=== PATIENT | female | born 1960 | race Caucasian/White ===

== ENCOUNTER 2017-05-24 05:30 | Day surgery (SDC) | payer OTHER ==
--- NOTE | 2017-05-17 14:11 | PCM.ANEPRE ---
Anesthesia Pre-Op Review Anesthesia Recommendations: Delay until Additional Data Obtain Additional Comments 57 yo for hysteroscopy D&c secondary to thickened endometrium on U/S. Patient saw range rider due to leg edema and was noted to have abnormal EKG changes in the anterior distribution. Patient has poor exercise tolerance. Cardiology recommended a Lexiscan to rule out occult CAD. Given that this surgery is nonurgent and patient has concerning EKG changes would wait for results of cardiac study. Chart Reviewed by: Jose Bernabe MD May 17, 2017 14:11
--- NOTE | 2017-05-22 12:56 | PCM.ANEPRE ---
Anesthesia Pre-Op Review Reason for Review: Cardiac Work-up Anesthesia Recommendations: Proceed with Procedure Additional Comments 57 yo F scheduled for hysteroscopy and D&C for thickened endometrium. Delayed by Dr. Quiroz on 05/17/2017 for further anastasiya pdue to poor exercise tolerance, lower extremity edema, and EKG changes. Since this time she underwent stress test (05/22/17) which was read as "probably normal" with normal LV volume and systolic function. OK to proceed. Chart Reviewed by: MD Myah Mcbride Jeffrey L MD May 22, 2017 12:56
[~2017-05-24] VITALS: Ht 161.3 cm; Wt 63.0 kg
[2017-05-24] VITALS (11 sets, daily range): BP systolic 106–169; BP diastolic 65–85; PULSE 52–68; RESP 9–18; O2SAT 94–100
[~2017-05-24 05:30] MED LIST: ASCO-294 PO; ASPI-973 PO; CALC-243 PO; CHOL10008 PO; FUR20 PO; LEVO75TA36 PO; METO25TA6 PO; MULT-1018 PO; POTA10TA14 PO
[2017-05-24] MEDS ORDERED: Ondansetron 2 mg/mL 2 mL Inj ONE (05:31)
[2017-05-24] MEDS ORDERED: fentaNYL-PF 50 mCg/mL 2 mL Inj ONE (05:31)
[2017-05-24] MEDS ORDERED: Propofol 10,000 mCg/mL 20 mL Inj ONE (05:31)
[2017-05-24] MEDS ORDERED: Dexamethasone 4 mg/mL Inj ONE (05:31)
[2017-05-24] MEDS ORDERED: EPHEDrine/NS 5 mg/mL 5 mL Syringe ONE (05:31)
[2017-05-24] MEDS: Lactated Ringer's 1,000 ML IV SCH ×2 (05:39→07:30)
[2017-05-24] MEDS ORDERED: Lactated Ringer's 1,000 ML IV SCH (07:44)
[2017-05-24] MEDS ORDERED: Lactated Ringer's 500 ML IV PRN (07:44)
--- NOTE | 2017-05-24 07:44 | PCM.HPANE ---
Patient Data Date of Service: May 24, 2017 Surgeon Admitting Provider: Attending Provider:Kelly Lagos MD Primary Care Physician:Ariel Gamboa DO Other Provider:Charlie Espinoza Anesthesia Reason for Visit Endometrial Thickening On Ultrasound Ht/WT & BMI Height (Feet): 5 Height (Inches): 3.50 Weight (Kilograms): 63.050 Body Mass Index 24.00 Allergies Coded Allergies: lisinopril (Verified Allergy, Intermediate, gi upset and cough, 05/24/17) Past Anesthesia History Anesthesia History: Denies:: Abnormal Airway, Anesthesia Reactions, Difficult Intubation, Fam Anesthesia Reaction Diabetes History Hx Diabetes?: No MRSA MRSA: Yes (possibly in 2006 (boil)) Medications Blood Thinner: Aspirin Hypertension Medication: Yes Home Meds Incl Beta Tsesy: Yes Date Beta Tessy Taken: May 24, 2017 Time Beta Tessy Taken: 0330 Reported Medications Cholecalciferol (Vitamin D3) (Vitamin D3)1,000 Unit Tab.chew1,000 Unit PO DAILY 05/16/17 Ascorbate Calcium (Vitamin C)500 Mg Tablet1,000 Mg PO DAILY 05/16/17 Multivitamin (Multi Vitamin Daily)1 Each Tablet1 Each PO DAILY 30 Days Ref 0 05/16/17 Metoprolol Tartrate 25 Mg Xjcnqh19 Mg PO BID 30 Days Ref 0 05/16/17 Levothyroxine (Levoxyl)75 Mcg Wengoo60 Mcg PO DAILY Ref 0 05/16/17 Potassium Chloride ER (Klor-Con M10)10 Meq Djlfng50 Meq PO DAILY Ref 0 05/16/17 Furosemide 20 Mg Tab20 Mg PO DAILY 30 Days Ref 0 05/16/17 Calcium Carbonate/Vitamin D3 (Calcium 600 + Vit D Tablet)1 Each Tablet1 Each PO DAILY 05/16/17 Aspirin 81 Mg Fgkeqi45 Mg PO DAILY Ref 0 05/16/17 History History of ENT Problems?: No HEENT History: Denies:: Abnormal Airway Cataracts Difficult Intubation Dysphagia Glaucoma Hearing Problem Sinus Problem TMJ Denture Type: None Teeth Condition: Within Normal Limits Hx of Heart Problems?: Yes Cardiovascular History: Positive for:: Edema Hypertension Denies:: AICD Cardiac Surgery Heart Murmur Irregular Heartbeat Pacemaker Peripheral Vascular Hx of Respiratory Problem?: No Respiratory History: Denies:: Asthma COPD Emphysema Hemoptysis Oxygen Administration Pneumonia Pulmonary Embolism Tuberculosis Use of C-PAP Machine Use of Inhalers / NEBS Hx Neurologic Problems?: No Neurological History: Denies:: Alzheimer's Disease CVA Dementia Dizziness Headaches Multiple Sclerosis Parkinson's Disease Seizures TIA Hx of GI Problems?: No Hx of Problems?: Yes Genitourinary History: Positive for:: Kidney Stones (hx of kidney stone ) Denies:: HX of Hemodialysis Urinary Tract Infection HX of Peritoneal Dialysis: No Other Pertinent History: hx of bladder tumor- Female Hx: Denies:: Currently Endometriosis Pelvic Inflammatory Problems with Breasts? Skin History: Denies:: History Skin Disorders? Pressure Ulcers Hx Musculoskeletal Problems?: Yes Musculoskeletal History: Positive for:: Osteoarthritis Denies:: Back Injury (curvative of spine) Degenerative Joint Fibromyalgia Joint Replacement Musculoskeletal Trauma (knees- limits exercise and motion) Myasthenia Gravis Systemic Lupus Hx of Psycho/Social Problems?: No Hx Surgeries?: Yes (kidney stone, left breat lumpectomy; fibroid embolization) Hx Any Other Health Problems?: Yes Other History: Positive for:: Cancer (bladder tumor) Hospitalization (kidney stone; fibroid embolization; left breast lumpectomy) Thyroid Disease (on medication) Denies:: Endocrine Disease History Blood Transfusions: Positive for:: Accept Blood Products? Denies:: Blood Transfusions Hx Diabetes: No Hx Alcohol Use: YesAlcoholic Drinks Per Day: one drink dailyHx Substance Use: NoHave You Smoked inLast 12 mo: No Stop/Bang S-Snoring: Do You Snore Loudly: No T-Tired: feel tired, fatigued: No O-Obsered: Observed not breath: No P-Blood Pressure: treated: Yes B- Body Mass Index > 35 kg/m2: No A- Age over 50: Yes N- Neck Large Circumference: No G- Gender Male: Yes ARIEL Total Score: 3 Risk Assessment Category Category 1A: Patient has history of documented sleep apnea, and HAS NOT received any narcotic, sedative or anesthesia administration during this stay. Category 1B: Patient has history of documented sleep apnea, and HAS received any narcotic , sedative or anesthesia administration during this stay Category 2: Patient has SUSPECTED Obstructive Sleep Apnea, and HAS received any narcotic , sedative or anesthesia administration during this stay. Category 3: Patient has SUSPECTED Obstructive Sleep Apnea and HAS NOT received narcotic, sedative or anesthesia administration during this stay. Category 4: Outpatient in Procedural Areas with known sleep apnea or who screen positive for High Risk via the STOP/BANG questionnaire. Exam Exam Vital Signs Vital Signs Date Time Temp Pulse Resp B/P Pulse Ox O2 Delivery O2 Flow Rate FiO2 05/24/17 06:12 36.7 58 18 169/85 99 Room Air General Appearance: Alert, Oriented X3, Cooperative, No Acute Distress HEENT/AIRWAY: MP 1 Lungs: Clear to Auscultation, Normal Air Movement Heart: Exam Unremarkable, Regular Rate/Rhythm, No Murmurs/Rubs/Gallops Meds/Labs/Diagnostics Admission Meds Current Medications Lactated Ringer's (Lr) 1,000 ml @ 120 mls/hr Q8H20M IV Last administered on t 05:39; Start 05/24/17 at 05:00; Stop 05/24/17 at 13:19 Plan Impression Patient chart reviewed, patient interviewed and anesthestic plan with risks, benefits, and alternatives discussed, and informed consent obtained. NPO per Anesth. Guidelines: Yes ASA Physical Status: ASA2 Mod Systemic Disease Anesthetic Plan: GA Bene/Risks/Altern/Consents: Yes HP Complete Prior to Induction: Yes Guilherme Lam MD May 24, 2017 07:25
[2017-05-24] MEDS ORDERED: Dexamethasone 4 mg/mL Inj IVPUSH PRN (07:45)
[2017-05-24] MEDS ORDERED: Atropine 0.4 mg/mL Inj IVPUSH PRN (07:45)
[2017-05-24] MEDS ORDERED: HYDROmorphone 1 mg/mL Inj IVPUSH PRN (07:45)
[2017-05-24] MEDS ORDERED: MetoCLOpramide 5 mg/mL 2 mL Inj IVPUSH PRN ×2 (07:45→09:10)
[2017-05-24] MEDS ORDERED: Labetalol 5 mg/mL 4 mL Inj IV PRN (07:45)
[2017-05-24] MEDS ORDERED: fentaNYL-PF 50 mCg/mL 2 mL Inj IVPUSH PRN (07:45)
[2017-05-24] MEDS ORDERED: hydrALAZINE 20 mg/mL Inj IVPUSH PRN (07:45)
[2017-05-24] MEDS ORDERED: Ondansetron 2 mg/mL 2 mL Inj IVPUSH PRN ×2 (07:45→09:10)
[2017-05-24] MEDS ORDERED: EPHEDrine Sulfate 50 mg/mL Inj IVPUSH PRN (07:45)
[2017-05-24] MEDS ORDERED: Phenylephrine 10,000 mCg/mL Inj IVPUSH PRN (07:45)
--- NOTE | 2017-05-24 08:57 | PCM.ANEP1 ---
Post Anesthesia PACU Phase 1 Assessment Date of Service: May 24, 2017 Vital Signs 36.4 111/69 54 12 100% FM Anesthetic Administered: GA Level of Alertness: Sleeping, hard to arouse QUINTEROS's with Equal Strength: Yes Pain: No Nausea or Vomiting: No CV Function & Hydration Stable: Yes Airway Device: Oxygen Delivery: Simple Mask Lungs: Clear to Auscultation, Normal Air Movement PACU Phase 2 Assessment Complications: No Follow up Care: No Patient Instructions Provided: Yes Guilherme Lam MD May 24, 2017 08:57
--- NOTE | 2017-05-24 09:05 | PCM.SURGOP ---
Surgical Operative Report Date of Service: May 24, 2017 Pre Operative Diagnosis Postmenopausal bleeding Uterine fibroids Post Operative Diagnosis Postmenopausal bleeding Uterine fibroids Procedure: 1. Hysteroscopy with dilation and curettage using the Myosure device. Surgeon and Cutter Operator Asbestos Shingle: Surgeon: Kelly Lagos MD Assistants: None Indication for Procedure Patient is a 57-year-old with a history of postmenopausal bleeding and an enlarged fibroid uterus. She did have an in office endometrial biopsy that showed atrophic endometrium, but that the time of the biopsy there was a large amount of blood and fluid obtained and the recommendation was to proceed with a hysteroscopy D&C to obtain a better tissue sample. Findings: Hysteroscopic findings showing a large amount of shaggy appearing endometrium and blood clot. There was a small posterior submucosal fibroid. The cervix was normal in appearance. The patient does have a very narrow introitus and vagina which did limit the mobility of the Myosure scope and device. Procedure Details The patient was taken to the operating room where her general anesthesia was obtained without difficulty. She was placed in a lithotomy position in the [facility] and prepared and draped in the normal sterile fashion. A surgical timeout was performed. A hysteroscopy with dilation and curettage using the Myosure device was then performed. A bivalve speculum was inserted into the patient's vagina and the cervix was identified and grasped with single- tooth tenaculum. The cervix was then dilated using Hegar cervical dilators. The Myosure hysteroscope was then inserted and the above noted findings were appreciated. The Classic Myosure device was then inserted and the endometrial cavity was curetted. Sharp endometrial curettings were then obtained and the Myosure scope was then reinserted and additional curettings were obtained. At this point the Myosure scope and device were removed. The single-tooth tenaculum was removed and good hemostasis was noted. This completed our procedure and all lap and instrument counts were correct 2 in the procedure. Patient was taken to her room awake and in good condition. Complications There were no periprocedural complications identified. Surgical Specimen Removed: Yes Specimen sent to Pathology: Yes Surgical Specimen description: Myosure endometrial curettings. Anesthetic Plan: GA Grafts, Implants: None Output, Estimated Blood Loss: 50 Blood Administration during terry: No Catheters: None Post Operative Plan Discharge patient home in awake and stable Kelly Lagos MD May 24, 2017 09:05
--- NOTE | 2017-05-24 09:08 | PCM.DIGYN ---
Surgical Discharge Instruction Dates of Hospitalization Date of Hospital Admission 05/24/2017 Providers Admitting Physician: Primary Care Physician: Ariel Gamboa DO Attending Physician: Kelly Lagos MD Diagnosis at Time of Discharge Diagnosis at time of discharge Postmenopausal bleeding and uterine fibroids Post-operative diagnosis Postmenopausal bleeding and uterine fibroids Problems: Diet Discharge Diet: No restrictions Activity Discharge Activity-General: Try not to overdue, Be up and about, Activity as pain allows, Activity as energy allows, Other (nothing per vagina until vaginal discharge has resolved, typically 2 weeks.) Dressing and Incisional Care Hygiene: May shower, NO bathtub, hot tub or whirlpool (for 1 week) Additional Instructions Discharge Instructions Today we performed a hysteroscopy with D/C and sent tissue samples to pathology. You may have some spotting from the procedure for a few days. Seek medical attention if you experience severe pain, heavy bleeding, dizziness , or fever. Follow Up Plan Follow Up Plan Follow with Dr. Lagos for pathology results in 2 weeks. Call your provider for: Fever, Chills, Shortness of breath, Vomitting, Heavy vaginal bleeding, Increasing pain Juan Gonzales DO May 24, 2017 09:05
[2017-05-24] MEDS ORDERED: HYDROcodone-APAP 5-325 mg Tablet PO PRN (09:10)
[2017-05-24] MEDS ORDERED: diphenhydrAMINE 25 mg Capsule PO PRN (09:10)
--- NOTE | 2017-05-27 12:04 | PATH ---
SURGICAL PATHOLOGY Attending Physician:Kelly Lagos, CASE STATUS: Signed Out PATIENT NAME: ABRAHAM ALBARADO PID: [id number] : 1960 DATE COLLECTED:05/24/2017 21:35 SPECIMEN: Endometrium, Curettage CLINICAL HISTORY: ABNORMAL ENDOMETRIAL ECHO, UTERINE FIBROIDS, ABNORMAL UTERINE BLEEDING 1). MYOSURE ENDOMETRIAL CURETTINGS FINAL DIAGNOSIS: 1.MYOSURE ENDOMETRIAL CURETTINGS: MULTIPLE FRAGMENTS OF INFARCTED TISSUE CONSISTENT WITH SMOOTH MUSCLE ORIGIN (SEE MICROSCOPIC DESCRIPTION). ICD10 N93.8 NOTE: As part of a routine software quality tester, Dr. Lore Livingston has also reviewed this case and agrees with the diagnosis. GROSS DESCRIPTION: Received in formalin, labeled with the patient' s name and "endometrial curetting", is a collection of campbell tissue fragments measuring 10.0 x 6.0 x 5.0 cm in aggregate. Shaft Repairer sections are submitted in cassettes 1A, 1B, and 1C. ([id number]) MICRO DESCRIPTION: Sections are of tissue stated to be from endometrial curettings. All of the tissue has undergone extensive infarction, but one can still ascertain a ghost-like outline of what appear to be spindle cells. Although these tissue fragments would be consistent with an infarcted leiomyoma, one cannot make a definitive diagnosis since cellular detail has been totally obscured by the degenerative changes. Focal calcifications are present. Endometrial glandular tissue is not identified. ICD-9 CODES: CPT CODES: 1: 83318 Electronically Signed Out Cayetano Elena MD [facility] [address], [place] [address] Technical component performed at [facility], [address], [place], [address]
== END 2017-05-24 23:59 | disposition home or self-care (01) ==
LOC: SAS 05:30
PROVIDERS: ATTEND Obstetrics & Gynecology
DX: D25.0 Submucous leiomyoma of uterus (principal); N93.8 Other specified abnormal uterine and vaginal bleeding; I10 Essential (primary) hypertension; E03.9 Hypothyroidism, unspecified; M41.9 Scoliosis, unspecified; D64.9 Anemia, unspecified; Z79.82 Long term (current) use of aspirin
CPT/HCPCS: 58561; J1100; J1885; J2250; J2405; J3010; J7120